=== PATIENT | female | born 1965 | race Caucasian/White ===

== ENCOUNTER 2019-08-11 13:40 | Day surgery (SDC) | payer OTHER ==
[2019-08-11] MEDS ORDERED: FENTAnyl 50 MCG/ML VIAL (16:57)
[2019-08-11] MEDS ORDERED: MIDAZOLAM 1 MG/ML 2 ML INJ ×3 (16:57)
== END 2019-08-11 17:56 | disposition home or self-care (01) ==
LOC: GIL 13:40
DX: K44.9 Diaphragmatic hernia without obstruction or gangrene (principal); K20.9 Esophagitis, unspecified
CPT/HCPCS: 43239; 88305; 88312